=== PATIENT | male | born 1980 | race Caucasian/White ===

== ENCOUNTER 2018-05-31 16:27 | Observation (INO) | payer OTHER ==
[2018-05-31] MEDS: LEVETIRACETAM 1000 MG (PMX) 100 ML IVPB (17:04)
[2018-05-31] MEDS: SOD CHLORIDE 0.9% 1,000 ML IV ×3 (17:04→22:42)
[2018-05-31 17:06] LABS: ADD MAN DIFF? NO
[2018-05-31 17:09] LABS: BASOPHIL # 0.1 10^3/ul (0.0-0.1); BASOPHILS % 0.8 % (0.0-2.0); EOSINOPHILS # 0.1 10^3/ul (0.0-0.5); EOSINOPHILS % 1.9 % (0.0-7.0); HEMATOCRIT 44.6 % (42.0-52.0); LYMPHOCYTES # 1.3 10^3/ul (0.8-2.9); LYMPHOCYTES % 21.7 % (15.0-51.0); MEAN CORPUSCULAR HEMOGLOBIN 32.3 pg (29.0-33.0); MEAN CORPUSCULAR HGB CONC 33.6 g/dl (32.0-37.0); MEAN CORPUSCULAR VOLUME 95.9 fl (82.0-101.0); MEAN PLATELET VOLUME 10.5 fl (7.4-10.4); MONOCYTE # 0.5 10^3/ul (0.3-0.9); MONOCYTES % 7.7 % (0.0-11.0); NEUTROPHILS % 67.6 % (39.0-77.0); PLATELET COUNT 255 10^3/UL (140-415); RED BLOOD COUNT 4.65 10^6/ul (4.70-6.10); RED CELL DISTRIBUTION WIDTH 12.1 % (11.5-14.5)
[2018-05-31 17:09] LABS: WHITE BLOOD COUNT 5.9 10^3/ul (4.8-10.8)
[2018-05-31 17:29] LABS: ALANINE AMINOTRANSFERASE 24 IU/L (13-69); ALBUMIN 4.5 g/dl (3.3-4.9); ALBUMIN/GLOBULIN RATIO 1.55; ALKALINE PHOSPHATASE 34 IU/L (42-121); ANION GAP 17 (8-16); ASPARTATE AMINO TRANSFERASE 27 IU/L (15-46); BILIRUBIN,INDIRECT 0.4 mg/dl (0-1.1); BILIRUBIN,TOTAL 0.4 mg/dl (0.2-1.3); BLOOD UREA NITROGEN 12 mg/dl (7-20); CALCIUM 9.3 mg/dl (8.4-10.2); CARBON DIOXIDE 25 mmol/L (21-31); CHLORIDE 104 mmol/L (97-110); GLUCOSE 75 mg/dl (70-220); POTASSIUM 3.9 mmol/L (3.5-5.1); SODIUM 142 mmol/L (135-144); TOTAL PROTEIN 7.4 g/dl (6.1-8.1)
[2018-05-31 17:30] LABS: ETHANOL < 10.0 mg/dl
[2018-05-31 17:40] LABS: TROPONIN-I < 0.010 ng/ml (0.000-0.120)
[2018-05-31] MEDS ORDERED: ACETAMINOPHEN 325 MG TAB PO (19:30)
[2018-05-31] MEDS ORDERED: ONDANSETRON 4 MG INJ IV ×2 (19:30→20:00)
[2018-05-31] MEDS ORDERED: NACL 0.9% 3 ML SYG IV (20:00)
[2018-05-31] MEDS ORDERED: LORAZEPAM 2 MG INJ IV (20:00)
[2018-05-31 20:46] LABS: CREATINE KINASE 114 IU/L (23-200)
[2018-05-31 20:58] LABS: CK INDEX 0.7; CK-MB 0.85 ng/ml (0.0-2.4); TROPONIN-I < 0.010 ng/ml (0.000-0.120)
[2018-05-31] MEDS: KETOROLAC 30 MG INJ IV (22:42)
[2018-05-31 23:33] LABS: CREATINE KINASE 125 IU/L (23-200)
[2018-05-31 23:46] LABS: CK INDEX 0.6; CK-MB 0.78 ng/ml (0.0-2.4); TROPONIN-I < 0.010 ng/ml (0.000-0.120)
[2018-06-01 05:49] LABS: ADD MAN DIFF? NO
[2018-06-01 05:55] LABS: WHITE BLOOD COUNT 6.8 10^3/ul (4.8-10.8)
[2018-06-01 05:55] LABS: BASOPHILS % 0.6 % (0.0-2.0); EOSINOPHILS # 0.2 10^3/ul (0.0-0.5); EOSINOPHILS % 3.2 % (0.0-7.0); HEMATOCRIT 41.1 % (42.0-52.0); HEMOGLOBIN 13.5 g/dl (14.0-18.0); LYMPHOCYTES # 1.3 10^3/ul (0.8-2.9); LYMPHOCYTES % 18.4 % (15.0-51.0); MEAN CORPUSCULAR HEMOGLOBIN 31.5 pg (29.0-33.0); MEAN CORPUSCULAR HGB CONC 32.8 g/dl (32.0-37.0); MEAN PLATELET VOLUME 10.7 fl (7.4-10.4); MONOCYTE # 0.6 10^3/ul (0.3-0.9); MONOCYTES % 9.3 % (0.0-11.0); NEUTROPHIL # 4.6 10^3/ul (1.6-7.5); NEUTROPHILS % 68.2 % (39.0-77.0); PLATELET COUNT 225 10^3/UL (140-415); RED BLOOD COUNT 4.28 10^6/ul (4.70-6.10); RED CELL DISTRIBUTION WIDTH 12.4 % (11.5-14.5)
[2018-06-01 06:16] LABS: HEMOGLOBIN A1C 4.7 % (0-5.9)
[2018-06-01 06:44] LABS: CREATINE KINASE 126 IU/L (23-200)
[2018-06-01 06:53] LABS: ALANINE AMINOTRANSFERASE 29 IU/L (13-69); ALBUMIN 3.2 g/dl (3.3-4.9); ALBUMIN/GLOBULIN RATIO 1.28; ALKALINE PHOSPHATASE 25 IU/L (42-121); ANION GAP 10 (8-16); ASPARTATE AMINO TRANSFERASE 27 IU/L (15-46); BILIRUBIN,INDIRECT 0.4 mg/dl (0-1.1); BILIRUBIN,TOTAL 0.4 mg/dl (0.2-1.3); BLOOD UREA NITROGEN 12 mg/dl (7-20); CALCIUM 8.5 mg/dl (8.4-10.2); CARBON DIOXIDE 26 mmol/L (21-31); CHLORIDE 108 mmol/L (97-110); CREATININE 0.75 mg/dl (0.61-1.24); GLUCOSE 77 mg/dl (70-220); POTASSIUM 4.5 mmol/L (3.5-5.1); SODIUM 139 mmol/L (135-144); TOTAL PROTEIN 5.7 g/dl (6.1-8.1)
[2018-06-01 06:56] LABS: CK INDEX 0.5; CK-MB 0.64 ng/ml (0.0-2.4); TROPONIN-I < 0.010 ng/ml (0.000-0.120)
[2018-06-01 07:15] LABS: THYROID STIMULATING HORMONE 0.876 MIU/L (0.465-4.680)
[2018-06-01] MEDS: SOD CHLORIDE 0.9% 1,000 ML IV ×2 (09:11→22:31)
[2018-06-01] MEDS: ACETAMINOPHEN 325 MG TAB PO (10:23)
[2018-06-01] MEDS ORDERED: HYDROCODONE/APAP (5/325) TAB PO (21:30)
[2018-06-02] MEDS: SOD CHLORIDE 0.9% 1,000 ML IV (12:21)
== END 2018-06-02 15:31 | disposition home or self-care (01) ==
LOC: E/R 16:27 → 6WM 19:01
DX: R55 Syncope and collapse (principal)
CPT/HCPCS: 36415; 70450; 71045; 72125; 80053; 80307; 82550; 82553; 83036; 83735; 84443; 84484; 85025; 92610; 93005; 93306; 93880; 95819; 96374; 97161; 99217; 99285-25; G0378